=== PATIENT | female | born 1970 | race African-American/Black ===

== ENCOUNTER → 2017-03-26 | Outpatient (CLI) | payer BC ==
[~2017-03-26] MED LIST: CHEMO THERAPY; NOLVADEX PO; PERCOCET5/325; ZESTORETIC 20/21 TAB PO
--- NOTE | ~2017-03-26 | US98 ---
[facility] A Service of [facility] RADIOLOGY TEXT RESULTS PATIENT: BRIDGETTE LOYOLA LOCATION: [facility] : 70 UNIT #: [id number] AGE: [address]: Rhonda Barry MD SEX: F ORDER DR: [id number] [place], [place] [address] [id number] MR#: [id number] Acc #: [id number] NAME: BRIDGETTE LOYOLA : 1970 SEX: F STUDY DATE/TIME: 03/26/2017 11:01 UNIT: [facility] ROOM: STUDY DESCRIPTION: US Pelvic Non-OB Complete Attending Physician: Rhonda Barry M.D. Ordering Physician: Rhonda Barry M.D. Primary Care Physician: Loree Kumar M.D. MEDICAL IMAGING REPORT This report is preliminary unless electronic signature is present EXAM Pelvic ultrasound HISTORY Menorrhagia for 6 months. TECHNIQUE Peterson-scale, color Doppler and spectral Doppler waveform analysis was performed through the pelvis both transabdominally and transvaginally. FINDINGS Patient's uterus contains a small fibroid posteriorly measuring up to 1.2 x 1.4 x 1.2 cm. Endometrium measures within normal limits for a pre-menopausal woman. Patient does have a simple-appearing cyst on right ovary measuring 1.5 x 1.4 x 1.2 cm. Normal color Doppler flow is seen in both ovaries and the left ovary appears normal. IMPRESSION 1. Small uterine fibroid measuring 1.2 x 1.4 x 1.2 cm. 2. Simple-appearing right ovarian cyst. Dictated by... Emeli Allen M.D. THIS IS AN ELECTRONICALLY VERIFIED REPORT Emeli Allen M.D. at 03/29/2017 7:56 AM AFF/pcl TD: 03/26/2017 21:13 JOB #: [id number] [facility] A Service of [facility] RADIOLOGY TEXT RESULTS PATIENT: BRIDGETTE LOYOLA LOCATION: [facility] : 70 UNIT #: [id number] AGE: [address]: Rhonda Barry MD SEX: F ORDER DR: MEDICAL IMAGING REPORT Page 1 of 1 COPY
== END | disposition home or self-care (01) ==
LOC: CWCC 10:39
DX: N92.0 Excessive and frequent menstruation with regular cycle (principal); N92.4 Excessive bleeding in the premenopausal period; D25.9 Leiomyoma of uterus, unspecified; N83.291 Other ovarian cyst, right side
CPT/HCPCS: 76830; 76856